=== PATIENT | male | born 1945 | race Caucasian/White ===

== ENCOUNTER 2017-05-26 17:24 | Emergency (ER) | payer SELFPAY ==
[2017-05-26 18:03] VITALS: BP 186/114
[2017-05-26] MEDS ORDERED: Tetan/Diph/Pertus SYR(Tdap)* 0.5 ML SYR(BOOSTRIX) use SYR IM ONE (18:13)
--- NOTE | 2017-05-26 18:49 | RAD ---
Indication: Right fifth finger injury. 3 views of the right fifth digit demonstrates no definite radiopaque foreign body. Degenerative changes of the distal and proximal interphalangeal joint is noted. IMPRESSION: NO FRACTURE IS NOTED. NO DEFINITE RADIOPAQUE FOREIGN BODY IS NOTED.
[2017-05-26] MEDS ORDERED: Cephalexin CAP* 500 MG PO ONE (19:21)
--- NOTE | 2017-05-26 19:38 | UC ---
Skin Complaint HPI - HPI Summary HPI Summary: SPLINTER IN BASE OF RIGHT FIFTH FINGER. BEGINNING TO SWELL. LAST TETANUS SHOT > 10 YRS AGO. 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 Negative: Fever, Chills, Throat Tightening, Rash, Drainage, Bruising Related History: Trauma - Allergy/Home Medications Allergies/Adverse Reactions: Allergies Allergy/AdvReac Type Severity Reaction Status Date / Time No Known Allergies Allergy Verified 05/26/17 18:03 Home Medications: Home Medications Lasartan Teva* 1 tab PO DAILY 05/26/17 [History Confirmed 05/26/17] Rivaroxaban TAB(*) [Xarelto 10 mg (*)] 10 mg PO DAILY 05/26/17 [History Confirmed 05/26/17] Simvastatin [Zocor 40 MG (NF)] 40 mg PO QPM 05/26/17 [History Confirmed 05/26/17 ] Review of Systems Constitutional: Negative Skin: Other - SPLINTER REMOVED FROM RIGHT FIFTH FINGER Eyes: Negative ENT: Negative Respiratory: Negative Cardiovascular: Negative Gastrointestinal: Negative Genitourinary: Negative Motor: Negative Neurovascular: Negative Musculoskeletal: Negative Neurological: Negative Psychological: Negative Is Patient Immunocompromised?: No All Other Systems Reviewed And Are Negative: Yes PMH/Surg Hx/FS Hx/Imm Hx Previously Healthy: Yes - Surgical History Surgical History: None - Family History Known Family History: Positive: None - Social History Occupation: Retired Lives: With Family Alcohol Use: Occasionally Substance Use Type: None Smoking Status (MU): Never Smoked Tobacco Physical Exam Triage Information Reviewed: Yes Appearance: Well-Appearing, No Pain Distress, Well-Nourished Vital Signs: Initial Vital Signs Temp 98.3 F 05/26/17 18:01 Pulse 96 05/26/17 18:01 Resp 16 05/26/17 18:01 BP 186/114 05/26/17 18:01 Pulse Ox 96 05/26/17 18:01 Vital Signs Reviewed: Yes Eye Exam: Normal ENT Exam: Normal ENT: Positive: Normal ENT inspection, TMs normal Dental Exam: Normal Neck exam: Normal Neck: Positive: Supple, Nontender, No Lymphadenopathy Respiratory Exam: Normal Respiratory: Positive: Chest non-tender, Lungs clear, Normal breath sounds, No respiratory distress Cardiovascular Exam: Normal Cardiovascular: Positive: RRR, No Murmur, Pulses Normal Abdominal Exam: Normal Musculoskeletal: Positive: Strength Intact, ROM Intact, No Edema, Other: - PUNCTURE WOUND RIGHT FIFTH FINGER Neurological Exam: Normal Psychological Exam: Normal Skin: Positive: Other - PUNCTURE WOUND RIGHT FIFTH FINGER - Additional Comments RIGHT FIFTH FINGER PUNCTURE WOUND EXPLORED. WOUND IRRIGATED, EXPLORED WITH 18 GAUGE NEEDLE AND SPLINTER FORCEPS. PATIENT REFUSED LIDOCAINE. NO SPLINTER OR SPLINTER FRAGMENTS FOUND ON CURSORY EVALUATION. Course/Dx - Differential Diagnoses - Skin Complaint Differential Diagnoses: Cellulitis, Systemic Illness - Diagnoses Provider Diagnoses: RIGHT FIFTH FINGER SPLINTER/PUNCTURE WOUND Discharge - Discharge Plan Condition: Stable Disposition: HOME Prescriptions: Cephalexin CAP* [Keflex CAP*] 500 mg PO QID #28 cap Patient Education Materials: Soft Tissue Foreign Body (ED), Puncture Wound (ED) , Diphtheria Tetanus and Pertussis Vaccine (ED) Referrals: No Primary Care Phys,NOPCP [Primary Care Provider] - Additional Instructions: Please soak three times daily in warm EPSOM SALT solution
== END 2017-05-26 19:50 | disposition home or self-care (01) ==
LOC: UCEAST 17:24
DX: S60.456A Superficial foreign body of right little finger, initial encounter (principal); W45.8XXA Other foreign body or object entering through skin, initial encounter; Y92.9 Unspecified place or not applicable
CPT/HCPCS: 10120; 73140; 90471; 90715; 99202; A9270-GY; G0463